=== PATIENT | female | born 1960 | race African-American/Black ===

== ENCOUNTER 2019-06-26 17:28 | Emergency (ER) | payer MEDICAID ==
[~2019-06-26] VITALS: Ht 160 cm; Wt 129.3 kg
[2019-06-26 17:38] VITALS: Ht 160 cm; Wt 129.3 kg
[2019-06-26 19:12] LABS: BASOPHIL % 0.5 % (0-2); PLATELET COUNT 282 x10^3mcL (130-400); RED CELL DISTRIBUTION WIDTH 13.8 % (11.5-14.5)
[2019-06-26 19:14] LABS: CALCIUM 9.2 mg/dL (8.5-10.1); CARBON DIOXIDE 28.6 mmol/L (21-32); CHLORIDE SERUM 107 mmol/L (98-107); GFR1 > 60 mL/min; GLUCOSE SERUM 133 mg/dL (74-106); POTASSIUM SERUM 4.7 mmol/L (3.5-5.1); SODIUM SERUM 142 mmol/L (136-145)
[2019-06-26 19:19] LABS: ALBUMIN 3.7 g/dL (3.4-5.0); ALKALINE PHOSPHATASE 115 U/L (46-116); ALT/SGPT 28 U/L (14-59); AST/SGOT 14 U/L (15-37); BILIRUBIN TOTAL 0.3 mg/dL (0.20-1.00); TOTAL PROTEIN, SERUM 7.4 g/dL (6.4-8.2)
[2019-06-26 23:00] VITALS: BP 148/84
== END 2019-06-26 23:00 | disposition home or self-care (01) ==
LOC: ED 17:28
PROVIDERS: Emergency Medicine
DX: R42 Dizziness and giddiness (principal); R07.89 Other chest pain; R51 Headache; H53.8 Other visual disturbances; Z88.0 Allergy status to penicillin
CPT/HCPCS: 36415